=== PATIENT | female | born 1960 | race Caucasian/White ===

== ENCOUNTER 2020-06-14 10:31 | Emergency (ER) | payer OTHER, SELFPAY ==
--- NOTE | 2020-06-14 10:42 | ED.EAR ---
HPI - Ear Problem General Chief complaint: Ear Stated complaint: Ear ache Time Seen by Provider: 06/14/20 10:44 Source: patient and RN notes reviewed Mode of arrival: ambulatory Limitations: no limitations History of Present Illness HPI Narrative: 60-year-old female presents concern for left ear pain and pressure. Reports symptoms started approximate 1 week ago. Reports no new nasal congestion, rhinorrhea. Reports she generally has some nasal congestion and drainage, uses Flonase daily. She denies fever, sore throat, cough, shortness of breath, loss of sense of taste or smell, sick contacts. Denies any other intervention. MD Complaint: ear pain Related Data Home Medications Medication Instructions Recorded Confirmed baclofen mg 06/14/20 dalfampridine mg PO 06/14/20 fluticasone propionate INTRANASAL 06/14/20 lisinopril 06/14/20 methylphenidate HCl 06/14/20 montelukast mg 06/14/20 omeprazole 06/14/20 pramipexole mg 06/14/20 Allergies Allergy/AdvReac Type Severity Reaction Status Date / Time moxifloxacin Allergy Unknown SOB Verified 10/24/18 16:37 Review of Systems Review of Systems: Narrative: CONSTITUTIONAL: Denies malaise, chills, sweats, or fever. EYES: Denies visual changes, redness, or discharge. ENT: Reports rhinorrhea, congestion, left ear pain. Denies sinus pain and sore throat. CARDIOVASCULAR: Denies chest pain, palpitations, or edema. RESPIRATORY: Denies cough or dyspnea. GASTROINTESTINAL: Denies abdominal pain, nausea, vomiting, diarrhea SKIN: Denies rash or itching. MUSCULOSKELETAL: Denies myalgia. NEUROLOGIC: Denies headache. All systems reviewed & are unremarkable except as noted in HPI and below PMFSH Comments At time of signature, agree with nursing past medical, surgical, social and family history. There is no relevant family history pertinent to the presenting complaint Exam Narrative: Exam Narrative: GENERAL: Well-appearing, well-nourished, and in no acute distress. HEAD: Normocephalic EYES: PERRLA, conjunctivae clear ENT: Nares clear, turbinates erythematous, clear discharge. Mucous membranes moist. TM pearly larson with dull light reflex bilaterally; no tragal tenderness. Oropharynx mildly erythematous without lesions. Tonsils not enlarged and without exudate, no drooling, no hoarseness, no trismus, uvula midline. NECK: Supple. No lymphadenopathy CHEST: Clear to auscultation, breath sounds equal. No wheezing, rhonchi, rales, or stridor. No respiratory distress, speaks in full sentences. HEART: Regular rate and rhythm. No murmur heard. SKIN: Warm, dry, no rash. NEURO: Alert and oriented x3. PSYCH: Normal mood and affect Course Course Emergency Course: Patient is aware of diagnosis, understands and agrees to treatment plan. Anticipatory guidance given. Patient agrees to follow-up as directed and is aware of reasons to seek care at the emergency department. Portions of this record may have been created with voice recognition software Vital Signs Vital signs: Reviewed. Patient has been instructed to follow up with her primary care provider within the next week regarding her elevated blood pressure today. Medical Decision Making Differential Diagnosis Differential Diagnosis: Differential diagnosis considered: Rodríguez virus, strep pharyngitis, allergic rhinitis, upper respiratory tract infection, sinusitis, rhinosinusitis, nasopharyngitis. viral pharyngitis, otitis media, otitis externa, pneumonia, bronchitis, viral cough syndrome, viral syndrome, and influenza. Exam findings show no acute concerns or changes; patient is non-toxic appearing and is in no distress. Patient is appropriate for outpatient treatment and follow-up. Critical Care Time Critical Care Time Critical Care Time: No Discharge Plan Discharge Clinical Impression: Earache on left Patient Disposition: Home, Self-Care Condition: Stable Instructions: Earache (ED) Additional Instructions: Viral illness may
[2020-06-14 10:50] VITALS: BP 148/83; PULSE 87; RESP 18; TEMP 36.7; O2SAT 99
[2020-06-14 11:01] VITALS: BP 148/83; PULSE 87; RESP 18; TEMP 36.7; O2SAT 99
== END 2020-06-14 11:15 | disposition home or self-care (01) ==
PROVIDERS: Emergency Provider Nurse Practitioner; PCP Family Medicine
DX: H92.02 Otalgia, left ear (principal); I10 Essential (primary) hypertension; G35 Multiple sclerosis; K21.9 Gastro-esophageal reflux disease without esophagitis
CPT/HCPCS: 87081; 87880; 99213; G0463

== ENCOUNTER 2020-09-15 10:03 | Emergency (ER) | payer OTHER, SELFPAY ==
--- NOTE | ~2020-09-15 | XR_ITS ---
[XR ribs LT 2V ] INDICATION: Left rib pain TECHNIQUE: Frontal projection of the upper left ribs, frontal projection of the lower left ribs, obli que projection of all the left ribs, frontal inspiratory chest x-ray for interpretation. FINDINGS: There are no displaced rib fractures identified. There are no soft tissue abnormality see n. The lungs are clear. IMPRESSION: 1:No displaced rib fractures. Reviewed, dictated and finalized at location B.
[2020-09-15 10:06] VITALS: BP 131/84; PULSE 66; RESP 20; TEMP 36.7; O2SAT 100
--- NOTE | 2020-09-15 10:10 | ED.GENADULT ---
HPI - General Adult General Chief complaint: Chest Pain Stated complaint: left side pain Time Seen by Provider: 09/15/20 10:45 Source: patient and RN notes reviewed Mode of arrival: ambulatory Limitations: no limitations History of Present Illness HPI narrative: 60-year-old female with history of multiple sclerosis presents concern for left rib pain. Reports at baseline she uses a cane for mobility and 2 days ago she was in a handicap bathroom when she tripped on her feet and fell onto her toilet hitting her left ribs. Reports she has been using ibuprofen for pain with some improvement. Denies difficulty breathing, shortness of breath, bruising, open skin. She denies abdominal pain, nausea. MD complaint: Rib pain Related Data Home Medications Medication Instructions Recorded Confirmed baclofen 10 mg PO BID 06/14/20 06/14/20 lisinopril 10 mg PO DAILY 06/14/20 06/14/20 methylphenidate HCl 10 mg PO DAILY 06/14/20 06/14/20 omeprazole 20 mg PO DAILY 06/14/20 06/14/20 pramipexole 0.125 mg PO BID 06/14/20 06/14/20 ocrelizumab [Ocrevus] 600 mg IV [id number] 09/15/20 09/15/20 Allergies Allergy/AdvReac Type Severity Reaction Status Date / Time moxifloxacin Allergy Unknown SOB Verified 09/15/20 10:25 Review of Systems Review of Systems: Narrative: CONSTITUTIONAL: Denies malaise, chills, sweats, or fever. CARDIOVASCULAR: Denies chest pain, palpitations, or edema. RESPIRATORY: Denies cough or dyspnea. GASTROINTESTINAL: Denies abdominal pain, nausea, vomiting GENITOURINARY: Denies hematuria. SKIN: Denies bruising, open skin MUSCULOSKELETAL: Reports left rib pain that worsens with bending twisting, coughing, sneezing. Denies back pain, joint pain, or myalgia. All systems reviewed & are unremarkable except as noted in HPI and below PMFSH Comments At time of signature, agree with nursing past medical, surgical, social and family history. There is no relevant family history pertinent to the presenting complaint Exam Narrative: Exam Narrative: GENERAL: Well-appearing, well-nourished, and in no acute distress. HEAD: Normocephalic, atraumatic. EYES: PERRLA, conjunctivae clear ENT: Mucous membranes moist. NECK: Supple. CHEST: No respiratory distress. Clear to auscultation. No bony deformities, no asymmetry. Speaks in full sentences. Mild tenderness palpation under the left breast HEART: Regular rate and rhythm. No murmur heard. Normal peripheral pulses. SKIN: Warm, dry, no rash. No redness or ecchymosis NEURO: Alert and oriented x3. PSYCH: Normal mood and affect Course Course Emergency Course: Patient is aware of diagnosis, understands and agrees to treatment plan. Anticipatory guidance given. Patient agrees to follow-up as directed and is aware of reasons to seek care at the emergency department. Portions of this record may have been created with voice recognition software Vital Signs Vital signs: Vital Signs Temperature 98.1 F 09/15/20 10:06 Pulse Rate 66 09/15/20 10:06 Respiratory Rate 20 09/15/20 10:06 Blood Pressure 131/84 09/15/20 10:06 Pulse Oximetry 100 09/15/20 10:06 Temperature 98.1 F 09/15/20 10:06 Pulse Rate 66 09/15/20 10:06 Respiratory Rate 20 09/15/20 10:06 Blood Pressure 131/84 09/15/20 10:06 Pulse Oximetry 100 09/15/20 10:06 Reviewed. Medical Decision Making Medical Records Medical records narrative: Patients injury and pain is consistent with musculoskeletal etiology. No signs of neurological or vascular compromise on exam. Compartments and tissues are soft without signs of compartment syndrome. Pain is felt appropriate for further evaluation on an outpatient basis. Vital Signs Vital Signs: Vital Signs Temperature 98.1 F 09/15/20 10:06 Pulse Rate 66 09/15/20 10:06 Respiratory Rate 20 09/15/20 10:06 Blood Pressure 131/84 09/15/20 10:06 Pulse Oximetry 100 09/15/20 10:06 Temperature 98.1 F 09/15/20 10:06 Pulse Rate 66 09/15/20 10:06 Res
== END 2020-09-15 11:03 | disposition home or self-care (01) ==
PROVIDERS: Emergency Provider Nurse Practitioner; PCP Family Medicine
DX: S29.9XXA Unspecified injury of thorax, initial encounter (principal); W01.198A Fall on same level from slipping, tripping and stumbling with subsequent striking against other object, initial encounter; G35 Multiple sclerosis; I10 Essential (primary) hypertension; G25.81 Restless legs syndrome; K21.9 Gastro-esophageal reflux disease without esophagitis
CPT/HCPCS: 71100; 99213; G0463

== ENCOUNTER 2022-07-11 10:30 | Emergency (ER) | payer OTHER, SELFPAY ==
--- NOTE | ~2022-07-11 | XR_ITS ---
XR foot LT min 3V 07/11/2022 10:53 Indication: Left foot pain after injury Procedure: 4 views left foot Comparison: 10/24/2018 Findings: There is an oblique minimally displaced extra-articular fracture fifth metatarsal shaft. Os teopenia. There are interlocking screws and intramedullary kenny in the distal aspect of the tibia. 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 Impression: 1: Minimally displaced oblique extra-articular fracture left fifth metatarsal. Reviewed, dictated and finalized at location A. [employer] Impression: 1: Minimally displaced oblique extra-articular fracture left fifth metatarsal.
[2022-07-11 10:53] VITALS: BP 138/78; PULSE 70; RESP 16; TEMP 37; O2SAT 99
--- NOTE | 2022-07-11 10:54 | PC.NURSE ---
PT DECLINED ICE FOR COMFORT
--- NOTE | 2022-07-11 11:33 | ED.GENADULT ---
HPI - General Adult General Chief complaint: Extremity Injury, Lower Stated complaint: rolled lt foot Source: patient Mode of arrival: ambulatory Limitations: no limitations History of Present Illness HPI narrative: Patient presents for evaluation of left foot pain since yesterday. She indicates she took history report yesterday fell to the ground. She did not hit her head. No loss of consciousness. She has experience pain and swelling left foot since that time. She rates her pain 4/10 severity. She has been able to bear weight. She has underlying multiple sclerosis. She has some chronic paresthesias in the lower extremities, not worse since the time of the injury. She does mobilize with a walker. She has fractured the 5th metatarsal of right foot in the past. She used crutches at that time. That injury was before she was diagnosed with MS. Related Data Home Medications Medication Instructions Recorded Confirmed baclofen 10 mg tablet 10 mg PO BID 06/14/20 07/11/22 lisinopril 10 mg tablet 10 mg PO DAILY 06/14/20 07/11/22 methylphenidate HCl 10 mg tablet 10 mg PO DAILY 06/14/20 07/11/22 omeprazole 20 mg capsule,delayed 20 mg PO DAILY 06/14/20 07/11/22 release pramipexole 0.125 mg tablet 0.125 mg PO BID 06/14/20 07/11/22 ocrelizumab 30 mg/mL intravenous 600 mg IV [id number] 09/15/20 07/11/22 solution (Ocrevus) Allergies Allergy/AdvReac Type Severity Reaction Status Date / Time moxifloxacin Allergy Unknown SOB Verified 07/11/22 10:55 Review of Systems Review of Systems: CONSTITUTIONAL: Denies fever, chills, or sweats. EYES: Denies visual changes, redness, or discharge. ENT: Denies rhinorrhea, congestion, sore throat, or otalgia. CARDIOVASCULAR: Denies chest pain, palpitations, or edema. RESPIRATORY: Denies cough or dyspnea. GASTROINTESTINAL: Denies abdominal pain, nausea, vomiting, or diarrhea. GENITOURINARY: Denies dysuria or hematuria. SKIN: Denies rash or itching. MUSCULOSKELETAL: Reports pain and swelling left foot. NEUROLOGIC: Reports chronic paresthesias in the lower extremities, not worse since the injury. Denies headache,dizziness, or weakness. PSYCHIATRIC: Denies anxiety or depression. [facility] Past Medical History Medical History Multiple sclerosis Surgical History Surgical History No pertinent past surgical history Family History Family History Mother Family history non-contributory Social History Social History (Updated 07/11/22 @ 11:36 by Andrew Marshall [facility], ) Smoking status: Never smoker Alcohol intake: never Substance use: never Living arrangements: with family Gender identity (if verbalized by the patient): Female Sexual Orientation (if Verbalized by the Patient): Straight or Heterosexual Spiritual care concerns: No Exam Narrative: GENERAL: Well-appearing, well-nourished, and in no acute distress. HEAD: Normocephalic, atraumatic. EYES: PERRLA and EOMI. ENT: Nares clear, no rhinorrhea or epistaxis. Mucous membranes moist. Oropharynx without tonsillar hypertrophy exudate or other lesions. Bilateral TMs pearly larson nonbulging NECK: Supple. No adenopathy or masses. No carotid bruits or JVD CHEST: Clear to auscultation. No respiratory distress. No wheezes rales or rhonchi HEART: Regular rate and rhythm. No murmur heard. Normal peripheral pulses. ABDOMEN: Soft, nontender, nondistended, normal active bowel sounds. EXTREMITIES: Normal range of motion. No edema. Tenderness over the 5th metatarsal of left foot. SKIN: Trace swelling noted to the dorsal aspect of the left foot. There is ecchymosis overlying the 3rd-5th metatarsals of the left foot. Skin is warm, dry, no rash. NEURO: No focal deficits. Alert and oriented x3. PSYCH: Normal mood and affect. Course Course Emergency Cou
== END 2022-07-11 11:40 | disposition home or self-care (01) ==
PROVIDERS: Emergency Provider Nurse Practitioner; PCP Family Medicine
DX: S92.352A Displaced fracture of fifth metatarsal bone, left foot, initial encounter for closed fracture (principal); X50.9XXA Other and unspecified overexertion or strenuous movements or postures, initial encounter; G35 Multiple sclerosis
CPT/HCPCS: 29515; 73630; 99214; G0463